=== PATIENT | male | born 1965 | race Caucasian/White ===

== ENCOUNTER 2018-04-21 08:56 | Day surgery (SDC) | payer BC ==
[~2018-04-21] VITALS: Ht 180.3 cm; Wt 95.3 kg
[~2018-04-21 08:56] MED LIST: COZAAR50 MG PO; FENOFIBRATE160 MG PO; NEURONTIN 300300 MG; OMEPRAZOLE20 M1 PO; TESTOSTERONE CYP 200; VITAMIN D5000 UNIT PO
[2018-04-21 09:27] LABS: HEMATOCRIT 40.5 % (42.0-54.0); HEMOGLOBIN 13.4 g/dL (13.5-17.5); MCH 29.8 pg (26.0-34.0); MCHC 33.1 g/dL (31.0-37.0); MEAN PLATELET VOLUME 9.5 fL (7.4-10.4); RBC 4.5 10x6/uL (4.20-6.10); RDW 13.9 % (11.5-14.5); WBC 7.9 10x3/uL (4.8-10.8)
[2018-04-21] MEDS ORDERED: ZOCOR40 MG PO (10:13)
[2018-04-21] MEDS ORDERED: GLUCOPHAGE1000 MG PO (10:13)
[2018-04-21 10:26] VITALS: BP 158/85; Ht 180.3 cm; Wt 95.3 kg
[2018-04-21] MEDS ORDERED: METOPROLOL TART25 MG (10:44)
--- NOTE | 2018-04-21 14:52 | NUR ---
1425 PT VOIDED WITHOUT DIFFICULTY 1429 IV DC'D. CATHETER INTACT. BANDAID APPLIED.
--- NOTE | 2018-04-24 08:45 | HP ---
PATIENT: HELENA ENRIQUEZ JR MEDICAL RECORD: [id number] ACCOUNT: [id number] LOCATION:[facility] : 65 ADMISSION DATE: 04/21/18 PCP: SUKUMAR FAN MD HISTORY AND PHYSICAL EXAMINATION HISTORY OF PRESENT ILLNESS: Mr. Enriquez is 52. He has been noticed to have left tongue pain. CT was concerning for some fullness in the left vallecula. He is being admitted for direct laryngoscopy, biopsy, mainly just to the left base of the tongue. PAST MEDICAL HISTORY: Includes diabetes, hypertension. PAST SURGICAL HISTORY: Knee surgery, shoulder surgery, and hernia repair. CURRENT MEDICATIONS: Metformin, lisinopril, metoprolol, simvastatin, ranitidine. ALLERGIES: No known drug allergies. PHYSICAL EXAMINATION: GENERAL: He is healthy-appearing, developmentally normal. FACE: Normal, symmetric, no lesions. EYES: Sclerae and conjunctivae are normal. EARS: Canals and TMs are normal. NOSE: No masses, polyps or drainage. ORAL CAVITY AND OROPHARYNX: Normal exam. Tongue protrudes in the midline. Palpation of the base of the tongue is normal, although there is an area on the left base of the tongue that reproduces shock-like pain when palpated. Laryngoscopy is negative. NECK: No masses, no adenopathy. CHEST: Clear. CARDIOVASCULAR: Regular rate and rhythm, no murmur. EXTREMITIES: Normal. PLAN: Direct laryngoscopy, biopsy left base of the tongue and any other lesions visualized. TRANSINT:[id number] Voice Confirmation ID: [id number] DOCUMENT ID: [id number] CHRISTA DE LEÓN MD at 0845 CC: [id number] DICTATION DATE: 04/20/18 1055 DIGITAL FIELD SERVICE TECHNICIAN: 04/20/18 1104 [facility] 04/21/18 [place] [address]
--- NOTE | 2018-04-24 08:45 | OP ---
PATIENT NAME: HELENA ACEVEDO JR MEDICAL RECORD: [id number] :65 LOCATION:[facility] ADMISSION DATE: SURGEON: RICCO MAYEN MD DATE OF OPERATION: 04/21/2018 PREOPERATIVE DIAGNOSES: Left tongue pain, possible tongue mass. PROCEDURE: Direct laryngoscopy and biopsy of the left base of the tongue. SURGEON: Ricco Mayen MD ANESTHESIA: General orotracheal. BLOOD LOSS: Less than 5 cc. SPECIMENS: Multiple biopsies of the left base of tongue. COMPLICATIONS: None. DISPOSITION: Recovery, stable. PROCEDURE NOTE: He was brought to the operating room and placed in the supine position, sedated, and intubated by anesthesia. The table was turned 90 degrees. Head drape was applied. He was positioned for laryngoscopy. His oral cavity was examined first. He does have some teeth with decay but no sign of infection. The palate was examined. The floor of the mouth was examined. The buccal mucosa and then the pharynx, tonsillar fossa was palpated as was the base of the tongue and really nothing abnormal could be visualized; with him sleep and relaxed the neck was examined. There was an 18 mm lymph node in the left jugulodigastric area reported on the CT, but there was nothing palpable on exam, no masses or adenopathy. Then, using a Kleinsasser J. laryngoscope and a plastic upper tooth guard, the hypopharynx, vallecula, base of tongue, both piriforms, the post-cricoid area, posterior pharyngeal wall, the remaining base of the tongue, epiglottis, and larynx cords and arytenoids and supraglottic larynx, AE folds were all examined and secretions were suctioned. There was nothing friable, nothing bleeding, and nothing abnormal visually, looked at the left base of the tongue. There was not anything visible there. On palpation, really could not feel anything, but I could palpate where the pain was reproduced in the clinic with my finger and then looked directly at that area with the laryngoscope. Then, started taking biopsies visually first and then just with manually palpating the area and taking biopsies, took several biopsies around the entire area about the size of my fingertip, the telephone claims representative areas from the entire area and then took deeper biopsies below the epithelium deep into the muscle to below that, a couple of his biopsies did seem to have a more cartilaginous or firmer consistency, but there was nothing visually abnormal. There was some bleeding but not too much for the base of the tongue and then the area was examined, again visually looked at the area of the biopsies where, took some additional deeper ones in there and around the area just to make sure that everything was sampled. As there was no distinct lesion, did not send a frozen, did want to waste any of the specimens, case of the lesion was quite small. OPERATIVE REPORT [id number] HELENA ACEVEDO JR Bleeding was minimal. The laryngoscope was removed. He was awakened, extubated, and transported to the recovery in good condition. No complications. TRANSINT:[id number] Voice Confirmation ID: [id number] DOCUMENT ID: [id number] RICCO MAYEN MD at 0845 CC: [id number] DICTATION DATE: 04/21/18 1325 REFUSE COLLECTOR SUPERVISOR: 04/21/18 220 [facility] 04/21/18 [id number] [place] [address]
== END 2018-04-21 14:42 | disposition home or self-care (01) ==
LOC: D.OPS 08:56
PROVIDERS: Anesthesiology
DX: C01 Malignant neoplasm of base of tongue (principal); Z01.812 Encounter for preprocedural laboratory examination

== ENCOUNTER 2018-05-27 03:46 | Emergency (ER) | payer BC ==
[~2018-05-27] VITALS: Ht 180.3 cm; Wt 102.3 kg
[~2018-05-27 03:46] MED LIST changes: +GLUCOPHAGE1000 MG PO; +METOPROLOL TART25 MG; +ZOCOR40 MG PO
[2018-05-27 03:56] VITALS: Ht 180.3 cm; Wt 102.3 kg
[2018-05-27 04:35] LABS: BASOPHILS 0.2 % (0-2); EOSINOPHILS 0.4 % (0-7); HEMOGLOBIN 11.8 g/dL (13.5-17.5); LYMPHOCYTES 8.2 % (15-50); MCHC 33.7 g/dL (31.0-37.0); MEAN PLATELET VOLUME 9.2 fL (7.4-10.4); MONOCYTES 6.4 % (2-11); NEUTROPHILS 83.8 % (40-80); PLATELET COUNT 312 10x3/uL (130-400); RBC 4.07 10x6/uL (4.20-6.10); RDW 13.9 % (11.5-14.5); WBC 11.6 10x3/uL (4.8-10.8)
[2018-05-27 04:47] LABS: ALBUMIN 2.7 g/dL (3.4-5.0); BILIRUBIN - TOTAL 0.28 mg/dL (0.2-1.3); CALCIUM 8.6 mg/dL (8.5-10.1); CREATININE - SERUM 1.1 mg/dL (0.6-1.3); PROTEIN - SERUM 7.6 g/dL (6.4-8.2)
[2018-05-27 05:45] LABS: APPEARANCE CLEAR (CLEAR); BILIRUBIN NEGATIVE (NEGATIVE); COLOR YELLOW (YELLOW); GLUCOSE NEGATIVE (NEGATIVE); KETONE NEGATIVE (NEGATIVE); NITRITE NEGATIVE (NEGATIVE); PROTEIN NEGATIVE (NEGATIVE); UROBILINOGEN NORMAL (NORMAL)
[2018-05-27 09:19] VITALS: BP 149/86
== END 2018-05-27 09:20 | disposition other institution (70) ==
LOC: D.ER 03:46
PROVIDERS: Emergency Medicine
DX: L02.11 Cutaneous abscess of neck (principal); C14.0 Malignant neoplasm of pharynx, unspecified